=== PATIENT | male | born 1945 ===

== ENCOUNTER 2017-01-10 09:15 | Day surgery (SDC) | payer MEDICARE, OTHER ==
--- NOTE | 2017-01-05 15:27 | Pre-Procedure Note/Attestation ---
Pre-Procedure Note/Attestation Complete Prior to Procedure Planned Procedure: bilateral Procedure Narrative: 1- Ptosis correction upper lids. 2- Entropion correction upper lids. 3-Blepharoplasty uppers lids. Indications for Procedure Pre-Operative Diagnosis: 1- Blepharoptosis upper lids 2-Entropion upper lids. 3-Blepharochalasis upper lids Attestation I attest that I discussed the nature of the procedure; its benefits; risks and complications; and alternatives (and the risks and benefits of such alternatives ), prior to the procedure, with the patient (or the patient's legal visitor services representative). I attest that, if there was a reasonable possibility of needing a blood transfusion, the patient (or the patient's legal visitor services representative) was given the [facility] standardized written summary, pursuant to the Brigido Ashlyn Blood Safety Act ([place] Health and Safety Code # 1645, as amended). I attest that I re-evaluated the patient just prior to the surgery and that there has been no change in the patient's H&P, except as documented below: RON SHEPARD Jan 05, 2017 15:27
[~2017-01-10] VITALS: Ht 175.3 cm; Wt 79.4 kg
[2017-01-10] VITALS (11 sets, daily range): BP systolic 100–128; BP diastolic 46–72
[~2017-01-10 09:15] MED LIST: ASPIRIN81 MG ORAL; ATENOLOL25 MG ORAL; Akten 3.5% 1ml Btl BOTH EYES ONE; B COMPLEX1 EACH ORAL; CRESTOR40 MG ORAL; GABAPENTIN600 MG ORAL; Maxitrol Opth Oint 3.5gm BOTH EYES ONE; OXYCONTIN20 MG ORAL; PROTONIX40 MG ORAL; VENLAFAXINE H37.5 MG ORAL
[2017-01-10] MEDS ORDERED: Akten 3.5% 1ml Btl ONE (09:21)
[2017-01-10] MEDS ORDERED: LYRICA50 MG ORAL (09:58)
[2017-01-10] MEDS ORDERED: LOSARTAN POTASS25 M1 PO (09:58)
[2017-01-10] MEDS ORDERED: ABILIFY2 MG ORAL (09:58)
[2017-01-10] MEDS ORDERED: fentaNYL 100 mcg/2 mL IV ONE (11:30)
[2017-01-10] MEDS ORDERED: ePHEDrine 50mg/ml Inj ONE (11:30)
[2017-01-10] MEDS ORDERED: Midazolam 2mg/2ml Inj ONE (11:30)
[2017-01-10] MEDS ORDERED: NS Irrig 1000ml ONE (11:30)
[2017-01-10] MEDS ORDERED: LR 1000ml ONE (11:30)
[2017-01-10] MEDS ORDERED: Propofol 200mg/20ml IV ONE (11:30)
[2017-01-10] MEDS ORDERED: Sterile Water Irrig 1000ml IRRIG ONE (11:30)
[2017-01-10] MEDS ORDERED: LR 1000ml 1,000 ML IVLG SCH (12:07)
[2017-01-10] MEDS ORDERED: fentaNYL 100 mcg/2 mL IV PRN (12:15)
--- NOTE | 2017-01-10 12:17 | Anethesia Preoperative Eval ---
Anesthesia Pre-op PMH/ROS General Date of Evaluation: Jan 10, 2017 Time of Evaluation: 11:24 Anesthesiologist: Arielle ASA Score: ASA 3 Mallampati Score Class I : Soft palate, uvula, fauces, pillars visible Class II: Soft palate, uvula, fauces visible Class III: Soft palate, base of uvula visible Class IV: Only hard plate visible Mallampati Classification: Class II Surgeon: Debby Diagnosis: Bilateral ptosis Surgical Procedure: Bilateral upper blepharoplasty Family History: no anesthesia problems Allergies: Coded Allergies: No Known Allergies (Unverified , 01/10/17) Medications: see eMAR Past Medical History Cardiovascular: Reports: HTN, CAD - S/P CABG, Denies: AL, valve dz, arrhythmia, other Pulmonary: Denies: asthma, COPD, HENRY, other Gastrointestinal/Genitourinary: Reports: GERD, Denies: CRI, ESRD, other Neurologic/Psychiatric: Reports: depression/anxiety, Denies: dementia, CVA, TIA, other Endocrine: Denies: DM, hypothyroidism, steroids, other HEENT: Reports: cataract (L), cataract (R) Hematology/Immune: Denies: anemia, DVT, bleeding disorder, other Musculoskeletal/Integumentary: Denies: OA, RA, DJD, DDD, edema, other PMH Narrative: Pharyngeal CA (s/p reconstruction), CAD (s/p CABG), HTN, GERD PSxH Narrative: Pharyngeal reconstruction, cataract surgery Anesthesia Pre-op Phys. Exam Physician Exam Last Vital Signs Date Time Temp Pulse Resp B/P (MAP) Pulse Ox O2 Delivery O2 Flow Rate FiO2 01/10/17 09:52 98.4 80 19 128/72 99 Room Air Constitutional: NAD Neurologic: CN 2-12 intact Cardiovascular: RRR, no M/R/G Respiratory: CTA Gastrointestinal: S/NT/ND Airway Exam Mallampati Score: Class II MO: full ROM: full Dentures: upper, lower Anesthesia Pre-op A/P Labs WNL Studies Pre-op Studies: EKG - NSR Risk Assessment & Plan Assessment: ASA class 3 patient for blepharoplasty Plan: GA, LMA Status Change Before Surgery: No Pre-Antibiotics Drug: None KAMERON BERGERON M.D. Jan 10, 2017 12:17
--- NOTE | 2017-01-10 12:18 | Immediate Post-Op Evaluation ---
Immediate Post-Op Evalulation Immediate Post-Op Evalulation Procedure: Bilateral upper blepharoplasty Date of Evaluation: Jan 10, 2017 Time of Evaluation: 13:10 IV Fluids: 800 Blood Pressure Systolic: 119 Blood Pressure Diastolic: 50 Pulse Rate: 104 Respiratory Rate: 20 O2 Sat by Pulse Oximetry: 95 Temperature (Fahrenheit): 98.5 Pain Score (1-10): 0 Nausea: No Vomiting: No Complications No complication Patient Status: awake, patent, none Hydration Status: adequate Drug: None KAMERON BERGERON M.D. Jan 10, 2017 12:18
--- NOTE | 2017-01-10 13:00 | Discharge Summary ---
Discharge Summary Discharge Summary Discharge Summary DATE OF ADMISSION: 01/10/2017 DATE OF DISCHARGE: 01/10/2017 REASON FOR HOSPITALIZATION: 1- Ptosis OU 2- Entropion OU 3- Dermatochalasis OU SURGERY PERFORMED: All those pathology were corrected bilaterally CONDITION IN THE HOSPITAL:The patient tolerated the surgery without complications. DISCHARGE CONDITION: The patient was stable at discharge. DISCHARGE MEDICATIONS: 1. Vigamox eye drops one drop q.i.d, oU 2. Maxitrol eye ointment apply to the wound bid. 3- Keflex 500mg q8h. 4- [place] one pill q6h per pain prn POSTOPERATIVE ORDERS: The patient has to rest at home. No bending, No lifting, No watching Television tonight. POSTOPERATIVE FOLLOW UP: The patient will be followed in my office tomorrow morning at 7 o'clock. RON SHEPARD Jan 10, 2017 13:00
--- NOTE | 2017-01-10 13:04 | Brief Operative Note ---
Immediate Post Operative Note Operative Note Chief Complaint: Droopy eyelids difficulty driving and reading Pre-op Diagnosis: 1- Blepharoptosis upper lids 2-Entropion upper lids. 3-Blepharochalasis upper lids Procedure: 1- Ptosis correction upper lids 2- Entropion correction upper lids 3- Blepharoplasty, upper lids Post-op Diagnosis: same as pre-op Surgeon: Ron Guardado MD Corporate Development Intern: None Additional Surgeons: None Anesthesiologist: Dr. Guzmán Anesthesia: local, MAC Specimen: none Complications: none Condition: stable Fluids: 500ml Estimated Blood Loss: minimal Drains: none Implant(s) used?: RON Pires Jan 10, 2017 13:04
[2017-01-10] MEDS ORDERED: Povidone-Iodine 5% opth solution ONE (13:05)
[2017-01-10] MEDS ORDERED: Lidocaine 2% 20mg/ml/EPI 0.01mg/ml 20ml ONE (13:05)
--- NOTE | 2017-01-10 13:06 | 48 Hour Post Anesthesia Eval ---
Post Anesthesia Evaluation Procedure: Bilateral upper blepharoplasty Date of Evaluation: Jan 10, 2017 Time of Evaluation: 13:40 Blood Pressure Systolic: 121 0: 54 Pulse Rate: 92 Respiratory Rate: 18 O2 Sat by Pulse Oximetry: 97 Airway: patent Nausea: No Vomiting: No Pain Intensity: 0 Hydration Status: adequate Cardiopulmonary Status: Stable Mental Status/LOC: patient returned to baseline Follow-up Care/Observations: As per surgery Post-Anesthesia Complications: No anesthetic complication Follow-up care needed: N/A KAMERON BERGERON M.D. Jan 10, 2017 13:06
[2017-01-10] MEDS ORDERED: LR 1000ml 1,000 ML IV SCH (14:07)
--- NOTE | 2017-01-11 03:15 | Operative Note - Dictated ---
DATE OF OPERATION: 01/10/2017 FACILITY: [facility] SURGEON: Tung Guardado M.D. HEAD PAPER TESTER: None. ANESTHESIOLOGIST: Brigido Guzmán M.D. ANESTHESIA: Monitored anesthesia care (MAC) plus local anesthesia with lidocaine 2% with epinephrine 1:100,000. PREOPERATIVE DIAGNOSES: 1. Ptosis, upper lids. 2. Entropion, upper lids. 3. Blepharochalasis and dermatochalasis, upper lids. POSTOPERATIVE DIAGNOSES: 1. Ptosis, upper lids. 2. Entropion, upper lids. 3. Blepharochalasis and dermatochalasis, upper lids. SURGERY PERFORMED: 1. Ptosis correction, upper lids. 2. Entropion correction, upper lids. 3. Blepharoplasty, upper lids. INDICATION FOR SURGERY: The patient is a 71-year-old gentleman with a history of high blood pressure, coronary artery disease, multiple malignancies, and hypercholesterolemia. He is on acyclovir 400 mg daily, aspirin 81 mg, clotrimazole 10 mg, Crestor 20 mg, gabapentin two times as needed, and oxycodone 20 mg. He is complaining of blurry vision and difficulty driving because of upper lid droopiness. He is suffering from severe blepharochalasis with ptosis and entropion upper lids. This is a progressive dermatochalasis skin disease with resulting change of corneal curvature, which induces astigmatism and covering of visual axis, which is interruption for driving. The severity of the patient's dermatochalasis, ptosis, entropion, and ectropion is clearly demonstrated on enclosed photos and the patient's visual field. The only solution for this patient is correction of all those disfigurement and anatomic changes with surgery. INFORMED CONSENT: The nature of the surgery, risks, benefits, alternatives, and potential complications were explained to the patient in detail in his language, Farsi. He voiced understanding. The potential complications including, but not limited to bleeding, infection, corneal exposure, over correction, under correction, ecchymosis, swelling of the face, hematoma, dry eye syndrome, loss of the eyelashes, loss of the eyebrows, inequality of both eyes, change in vision, even loss of vision, and loss of the eye were all explained in detail to the patient, who voiced understanding and accepted all the complications. Then, he signed the consent form, which is in the chart. DESCRIPTION OF SURGERY AND FINDINGS: Following that, the patient was taken to the operation room in a stable condition. Lidocaine gel, Akten 3.5% were applied to the conjunctiva of both eyes. Following that, the anesthesiologist, Dr. Guzmán, put the patient to sleep after general anesthesia was applied to the patient. Following that, the upper lids were marked with a marking pen 10 mm above the root of the eyelashes and 15 mm below the lower part of the eyebrows. About 25 mm of the skin was left to facilitate eye closure. IV sedation was given by the anesthesiologist. The upper eyelids and lower eyelids were all anesthetized with 2% lidocaine and epinephrine 1:100,000. Following that, using the Bovie knife, the skin and subdermal tissue were dissected from the orbicularis oculi muscle and excised. Following that, the two fat compartments were released and sculptured conservatively. Following that, aponeurosis of the levator palpebrae superioris were tacked about 6 mm and stitched with 6-0 Vicryl and trimmed and hemostasis was performed. Following that, a groove was made 3 mm above the root of the lashes on the tarsal plate and this groove was stitched with 6-0 Vicryl and trimmed. Following that, the skin was stitched at the end of the surgery and hemostasis was performed. The patient tolerated the surgery without complications. At the end of the surgery, Maxitrol eye ointment was applied to the wound. Following that, the patient was transferred to the recovery room. In the recovery room, cold compresses were applied to the wound. The wound was checked for bleeding, there was no bleeding. Postoperative orders and directions were given to the patient. The patient will be discharged home upon stabilization. The patient will be followed in my office tomorrow morning. Tung Guardado M.D. DR: Jonathan JOB#: [id number] CC:
== END 2017-01-10 14:50 | disposition home or self-care (01) ==
LOC: SUR 09:15
DX: H02.403 Unspecified ptosis of bilateral eyelids (principal); H02.004 Unspecified entropion of left upper eyelid; H02.001 Unspecified entropion of right upper eyelid; H02.34 Blepharochalasis left upper eyelid; H02.31 Blepharochalasis right upper eyelid; I25.10 Atherosclerotic heart disease of native coronary artery without angina pectoris; E78.00 Pure hypercholesterolemia, unspecified; H53.8 Other visual disturbances; I10 Essential (primary) hypertension; Z95.1 Presence of aortocoronary bypass graft; Z85.9 Personal history of malignant neoplasm, unspecified; Z87.891 Personal history of nicotine dependence; K21.9 Gastro-esophageal reflux disease without esophagitis; F32.9 Major depressive disorder, single episode, unspecified; F41.9 Anxiety disorder, unspecified
CPT/HCPCS: 15822; 67924; J2250; J2405; J2704; J3010; J7120; 94003; 94150